=== PATIENT | female | born 1990 | race Caucasian/White ===

== ENCOUNTER 2025-04-24 15:58 | Emergency (ER) | payer OTHER ==
[~2025-04-24] VITALS: Ht 172.7 cm; Wt 90.0 kg
[2025-04-24 16:03] VITALS: O2SAT 97
[2025-04-24] MEDS: IBUPROFEN 400MG TABLET PO ONE (17:57)
[2025-04-24] MEDS: ACETAMINOPHEN 325MG TABLET PO ONE (17:59)
[2025-04-24 19:23] VITALS: BP 118/70; PULSE 103; RESP 18; TEMP 36.5; O2SAT 98
== END 2025-04-24 19:24 | disposition home or self-care (01) ==
LOC: ER 15:58
DX: S09.90XA Unspecified injury of head, initial encounter (principal); Y04.0XXA Assault by unarmed brawl or fight, initial encounter; Y93.89 Activity, other specified; Y92.89 Other specified places as the place of occurrence of the external cause; Y99.8 Other external cause status
CPT/HCPCS: 81025; 99284